=== PATIENT | female | born 1995 | race Caucasian/White ===

== ENCOUNTER 2021-08-09 18:20 | Emergency (ER) | payer OTHER ==
[~2021-08-09 18:20] MED LIST: CEFUROXIME500 MG PO; COLACE 100MG C100 MG PO; IBUPROFEN600 MG PO; LORTAB 5-325 M1 EACH PO; MACROBID 100 M100 MG PO; PRENATAL TABLE1 EAC2 PO; ZITHROMAX250 MG PO
[2021-08-09 20:13] LABS: HEMOGLOBIN 10.7 gm/dl (12.3-15.3); RED BLOOD COUNT 3.8 M/UL (4.00-5.10)
[2021-08-09 20:53] LABS: BUN/CREATININE RATIO 12 (0-10)
[2021-08-10] MEDS ORDERED: ZOFRAN ODT 4 MG4 MG SL (01:37)
== END 2021-08-10 01:50 | disposition home or self-care (01) ==
LOC: ER1 18:20
PROVIDERS: Student in an Organized Health Care Education/Training Program
DX: O98.511 Other viral diseases complicating pregnancy, first trimester (principal); U07.1 COVID-19; J11.1 Influenza due to unidentified influenza virus with other respiratory manifestations; Z90.49 Acquired absence of other specified parts of digestive tract; Z3A.12 12 weeks gestation of pregnancy
CPT/HCPCS: 0240U; 71045; 80048; 81001; 82550; 82553; 83605; 84484; 85025; 87040; 93005; 99284

== ENCOUNTER 2021-12-19 13:38 | Outpatient (CLI) | payer OTHER ==
[~2021-12-19 13:38] MED LIST changes: +ZOFRAN ODT 4 MG4 MG SL
== END 2021-12-19 16:30 | disposition home or self-care (01) ==
LOC: GENOP 13:38
DX: O62.9 Abnormality of forces of labor, unspecified (principal); Z3A.31 31 weeks gestation of pregnancy
CPT/HCPCS: 81001; 96360

== ENCOUNTER → 2022-01-07 | Outpatient (CLI) | payer OTHER | LOC: GENOP 10:28 | DX: O99.891 Other specified diseases and conditions complicating pregnancy (principal); M54.9 Dorsalgia, unspecified; Z3A.33 33 weeks gestation of pregnancy | CPT/HCPCS: 81001; 87086; G0463 ==

== ENCOUNTER 2022-01-22 16:52 | Inpatient (IN) | payer OTHER ==
[~2022-01-22] VITALS: Ht 157.5 cm; Wt 68.5 kg
[2022-01-22 22:13] LABS: HEMOGLOBIN 8.5 gm/dl (12.3-15.3); RED BLOOD COUNT 3.49 M/UL (4.00-5.10); WHITE BLOOD COUNT 14.3 K/UL (4.5-11.0)
[2022-01-23] MEDS ORDERED: PEPCID20 MG PO (06:27)
[2022-01-23] MEDS ORDERED: URSODIOL300 MG PO (06:27)
[2022-01-23] MEDS ORDERED: METRONIDAZOLE500 MG PO (06:29)
[2022-01-23] MEDS ORDERED: IBUPROFEN600 MG PO (16:02)
[2022-01-23] MEDS ORDERED: COLACE 100MG C100 MG PO (16:02)
[2022-01-25] MEDS ORDERED: FERROUS SULFAT325 MG PO (11:03)
[2022-01-28 14:11] LABS: RPR Reactive (Non Reactive); TREPONEMA PALLIDUM ANTIBODIES Reactive (Non Reactive)
== END 2022-01-25 17:30 | disposition home or self-care (01) | DRG 805 ==
LOC: GENOP 16:52 → OB 21:03
PROVIDERS: Obstetrics & Gynecology; ADMIT Obstetrics & Gynecology
PROC: 10D07Z3 Extraction of Products of Conception, Low Forceps, Via Natural or Artificial Opening (ICD-10-PCS; principal; 2022-01-23)
PROC: 10907ZC Drainage of Amniotic Fluid, Therapeutic from Products of Conception, Via Natural or Artificial Opening (ICD-10-PCS; 2022-01-23)
PROC: 3E033VJ Introduction of Other Hormone into Peripheral Vein, Percutaneous Approach (ICD-10-PCS; 2022-01-23)
DX: O26.62 Liver and biliary tract disorders in childbirth (principal); K83.1 Obstruction of bile duct; Z37.0 Single live birth; O98.42 Viral hepatitis complicating childbirth; Z3A.36 36 weeks gestation of pregnancy; O76 Abnormality in fetal heart rate and rhythm complicating labor and delivery; A59.9 Trichomoniasis, unspecified; O99.02 Anemia complicating childbirth; D64.9 Anemia, unspecified; B19.20 Unspecified viral hepatitis C without hepatic coma; O99.52 Diseases of the respiratory system complicating childbirth; J45.909 Unspecified asthma, uncomplicated; Z28.310 Unvaccinated for COVID-19; Z82.49 Family history of ischemic heart disease and other diseases of the circulatory system; Z83.3 Family history of diabetes mellitus; Z80.8 Family history of malignant neoplasm of other organs or systems
CPT/HCPCS: 36415; 80307; 81001; 82800; 85014; 85018; 85025; 86592; 86850; 86900; 86901; J2405; J2590; J2795